=== PATIENT | female | born 1990 | race Caucasian/White ===

== ENCOUNTER 2020-10-01 23:27 | Emergency (ER) | payer MEDICAID ==
[~2020-10-01] VITALS: Ht 157.5 cm; Wt 63.5 kg
[2020-10-02 03:10] VITALS: BP 132/77
[2020-10-02] MEDS ORDERED: cefTRIAXone SOD 1,000 MG VL IM ONE (03:15)
[2020-10-02] MEDS ORDERED: ACETAMINOPHEN 325 MG TAB PO ONE (03:15)
== END 2020-10-02 04:05 | disposition home or self-care (01) ==
LOC: EDUNIT# 23:27 → EDBD 23:27 → ER 23:33
DX: J06.9 Acute upper respiratory infection, unspecified (principal); F15.10 Other stimulant abuse, uncomplicated; F12.10 Cannabis abuse, uncomplicated
CPT/HCPCS: 96372; 99283; J0696

== ENCOUNTER 2020-10-05 20:14 | Emergency (ER) | payer MEDICAID ==
[~2020-10-05] VITALS: Ht 154.9 cm; Wt 63.5 kg
[2020-10-05 23:12] VITALS: BP 126/76
== END 2020-10-06 00:45 | disposition home or self-care (01) ==
LOC: EDBD 20:14 → ER 20:14
DX: S00.83XA Contusion of other part of head, initial encounter (principal); R51.9 Headache, unspecified; Z88.5 Allergy status to narcotic agent; Y04.8XXA Assault by other bodily force, initial encounter; Y93.89 Activity, other specified; Y92.89 Other specified places as the place of occurrence of the external cause; Y99.8 Other external cause status
CPT/HCPCS: 70450; 72125

== ENCOUNTER 2021-07-23 05:52 | Emergency (ER) | payer MEDICAID ==
[~2021-07-23] VITALS: Ht 154.9 cm; Wt 63.5 kg
[2021-07-23 05:52] VITALS: BP 140/105
== END 2021-07-23 08:25 | disposition left against medical advice (07) ==
LOC: ER 05:52
DX: M54.50 Low back pain, unspecified (principal); M79.604 Pain in right leg; Z53.21 Procedure and treatment not carried out due to patient leaving prior to being seen by health care provider; W20.8XXA Other cause of strike by thrown, projected or falling object, initial encounter; Y93.89 Activity, other specified; Y92.89 Other specified places as the place of occurrence of the external cause; Y99.8 Other external cause status

== ENCOUNTER 2022-10-25 23:24 | Emergency (ER) | payer MEDICAID ==
[~2022-10-25] VITALS: Ht 154.9 cm; Wt 65.0 kg
[2022-10-25 23:52] VITALS: BP 149/87
== END 2022-10-26 01:25 | disposition left against medical advice (07) ==
LOC: ER 23:24
DX: R10.30 Lower abdominal pain, unspecified (principal); Z53.21 Procedure and treatment not carried out due to patient leaving prior to being seen by health care provider

== ENCOUNTER 2022-11-29 00:22 | Emergency (ER) | payer MEDICAID ==
[~2022-11-29] VITALS: Ht 154.9 cm; Wt 61.5 kg
[2022-11-29 07:13] VITALS: BP 122/86
[2022-11-29] MEDS ORDERED: HYDROcodone-ACET 10/325MG TAB PO ONE (07:45)
[2022-11-29] MEDS ORDERED: SODIUM CHLORIDE 0.9% 1,850 ML IV ONE (08:00)
[2022-11-29] MEDS ORDERED: VANCOMYCIN 1GM/250ML 250 ML IV ONE (08:00)
[2022-11-29] MEDS ORDERED: PIPERACILLIN-TAZOB 3.375GM 100 ML IV ONE (08:00)
[2022-11-29 08:27] LABS: Basophils # (auto) 0 10 ^3/uL (0-0.2); Basophils % (auto) 0.3 % (0.0-2.0); Eosinophils # (auto) 0.1 10 ^3/uL (0-0.8); Eosinophils % (auto) 0.9 % (0.0-7.0); Hematocrit 31.8 % (36.0-46.0); Hemoglobin 10.4 g/dL (12.2-16.2); Lymphocytes # (auto) 1.5 10 ^3/uL (0.4-5.4); Mean Corpuscular Hemoglobin 27.3 pg (28.0-32.0); Mean Corpuscular Hgb Conc. 32.6 g/dL (32.0-36.0); Mean Corpuscular Volume 83.8 fL (80.0-100.0); Monocytes # (auto) 0.7 10 ^3/uL (0-1.3); Monocytes % (auto) 6.3 % (0.0-12.0); Neutrophils # (auto) 8.6 10 ^3/uL (1.6-8.6); Neutrophils % (auto) 78.5 % (37.0-80.0); Nucleated Red Blood Cells % 0.1 %; Red Blood Cells 3.79 10^6/uL (4.0-5.20); Red Cell Distribution Width 17.7 % (11.8-14.3)
[2022-11-29 08:59] LABS: Albumin 3.4 g/dL (3.4-5.0); Calcium 8.3 mg/dL (8.5-10.1); Potassium 3.7 mmol/L (3.5-5.1)
[2022-11-29 09:02] LABS: BUN/Creatinine Ratio 16.4 (10.0-20.0); Bilirubin, Total 0.5 mg/dL (0.2-1.0)
== END 2022-11-29 12:20 | disposition left against medical advice (07) ==
LOC: ER 00:22
DX: N76.0 Acute vaginitis (principal); F12.10 Cannabis abuse, uncomplicated; F15.10 Other stimulant abuse, uncomplicated; I10 Essential (primary) hypertension; R10.2 Pelvic and perineal pain; Z88.6 Allergy status to analgesic agent
CPT/HCPCS: 36415; 74176; 80053; 83605; 84702; 85025; 87040; 96361; 96365; 96367; 99285; J2543; J3370; J7030

== ENCOUNTER 2023-08-19 19:28 | Emergency (ER) | payer MEDICAID ==
[~2023-08-19] VITALS: Ht 154.9 cm; Wt 73.0 kg
[2023-08-19 19:56] VITALS: BP 132/75; PULSE 92; RESP 24; O2SAT 100
[2023-08-19] MEDS: IBUPROFEN 800 MG TAB PO ONE (21:28)
== END 2023-08-19 22:58 | disposition left against medical advice (07) ==
LOC: ER 19:28
DX: S02.85XA Fracture of orbit, unspecified, initial encounter for closed fracture (principal); S09.8XXA Other specified injuries of head, initial encounter; F12.10 Cannabis abuse, uncomplicated; F15.10 Other stimulant abuse, uncomplicated; Z88.6 Allergy status to analgesic agent; Y04.2XXA Assault by strike against or bumped into by another person, initial encounter; Y93.89 Activity, other specified; Y92.89 Other specified places as the place of occurrence of the external cause; Y99.8 Other external cause status
CPT/HCPCS: 70450; 70486

== ENCOUNTER 2023-08-22 04:47 | Emergency (ER) | payer MEDICAID ==
[~2023-08-22] VITALS: Ht 154.9 cm; Wt 66.8 kg
[2023-08-22 06:02] VITALS: PULSE 95; RESP 99; O2SAT 99
[2023-08-22] MEDS: CLINDAMYCIN 900MG IV 50 ML IV ONE (07:22)
[2023-08-22] MEDS: TETANUS-DIPTH-ACEL PERTUSSIS 0.5ML SYR Tdap IM ONE (07:36)
[2023-08-22] MEDS: ACETAMINOPHEN 325 MG TAB PO ONE (07:37)
[2023-08-22 09:00] VITALS: RESP 16; O2SAT 97
[2023-08-22 09:16] VITALS: BP 133/66; PULSE 88; RESP 16; TEMP 98.4; O2SAT 97
== END 2023-08-22 09:45 | disposition short-term general hospital (02) ==
LOC: ER 04:47
DX: S02.85XA Fracture of orbit, unspecified, initial encounter for closed fracture (principal); S02.19XA Other fracture of base of skull, initial encounter for closed fracture; S02.40CA Maxillary fracture, right side, initial encounter for closed fracture; I10 Essential (primary) hypertension; F12.10 Cannabis abuse, uncomplicated; F15.10 Other stimulant abuse, uncomplicated; Z88.6 Allergy status to analgesic agent; Y04.2XXA Assault by strike against or bumped into by another person, initial encounter; Y93.89 Activity, other specified; Y92.89 Other specified places as the place of occurrence of the external cause; Y99.8 Other external cause status
CPT/HCPCS: 90471; 90715; 96365; 99285; J3490

== ENCOUNTER 2024-01-10 17:51 | Emergency (ER) | payer MEDICAID ==
[~2024-01-10] VITALS: Ht 154.9 cm; Wt 63.0 kg
[2024-01-10 20:30] VITALS: BP 134/77; PULSE 78; RESP 14; O2SAT 99
[2024-01-10] MEDS ORDERED: AUG875T PO (20:49)
[2024-01-10] MEDS: KETOROLAC TROMETH 30 MG/ML 1ML VIAL IM ONE (20:54)
[2024-01-10] MEDS: BENZOCAINE (DENTAL) 20 % SPRAY 60ML MT ONE (20:54)
[2024-01-10] MEDS: cefTRIAXone SOD 1,000 MG VL IM ONE (20:54)
== END 2024-01-10 21:24 | disposition home or self-care (01) ==
LOC: ER 18:02
DX: K04.7 Periapical abscess without sinus (principal); I10 Essential (primary) hypertension; F17.210 Nicotine dependence, cigarettes, uncomplicated; F10.90 Alcohol use, unspecified, uncomplicated; F12.90 Cannabis use, unspecified, uncomplicated; F15.90 Other stimulant use, unspecified, uncomplicated; Z88.5 Allergy status to narcotic agent
CPT/HCPCS: 96372; 99284; J0696; J1885

== ENCOUNTER 2024-08-03 09:27 | Emergency (ER) | payer MEDICAID ==
[~2024-08-03] VITALS: Ht 154.9 cm; Wt 69.6 kg
[~2024-08-03 09:27] MED LIST: AUG875T PO
[2024-08-03 09:47] VITALS: BP 140/92; PULSE 87; RESP 16; TEMP 98.9; O2SAT 99
--- NOTE | 2024-08-03 10:09 | ED.PDOC ---
Back pain HPI HPI Comments A 33 YEAR OLD FEMALE PRESENTS TO THE ED WITH COMPLAINT OF NECK PAIN X ONSET THIS MORNING. PATIENT STATES THAT SHE WOKE UP THIS MORNING AND HAS PAIN TO THE RIGHT SIDE OF HER NECK, RADIATES INTO HER RIGHT SHOULDER, AND DESCRIBES A ACHING, 10/10 PAIN. PATIENT IS ABLE TO MOVE HER NECK WITH FULL ROM. PATIENT ENDORSES THAT SHE MAY HAVE SLEPT ON HER PILLOW WRONG LAST NIGHT. PATIENT DENIES ANY NEUROLOGICAL SYMPTOMS. PATIENT DENIES FEVER, CHILLS, SHORTNESS OF BREATH, CHEST PAIN, ABDOMINAL PAIN, NAUSEA, VOMITING, HEADACHE, OR OTHER COMPLAINTS. NO OTHER SYMPTOMS OR MODIFYING FACTORS AT THIS TIME. PATIENT IS ALERT, ORIENTED X 4, AND HAS STEADY GAIT. Chief Complaint: Neck Pain Time Seen by MD: 09:56 Primary Care Provider: ALEX Reviewed Notes: Nurses Notes, Medications, Allergies Allergies: Coded Allergies: Codeine (Verified Allergy, Unknown, 10/05/20) Home Meds Active Scripts Methocarbamol (Methocarbamol) 750 Mg Tab, 750 MG PO BID, #20 TAB Prov:LB WOOD 08/03/24 Ibuprofen (Ibuprofen) 800 Mg Tab, 1 TAB PO TID, #30 TAB Prov:LB WOOD 08/03/24 Amoxicillin & Pot Clavulanate (AUGMENTIN TABLET) 875 Mg Tb, 875 MG PO BID for 7 Days, #14 TAB Prov:CARI CAMARILLO PAC 01/10/24 Information Source: Patient Mode of Arrival: Ambulatory Timing: Hours Duration: Since onset Location of Back pain: (B) Cervical, Other (RIGHT SHOULDER ) Severity: Moderate Prehospital treatment: None Quality: Aching Onset: Spontaneous History of: None Modifying Factors: Movement Associated signs and symptoms: None Past Medical History PAST MEDICAL HISTORY: HTN, Seizures Surgical History: Denies all surgeries 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 WITH [facility] History Family History Family History: Unknown Social History Smoker: Cigarettes, Greater Than 1 Pack/Day, Other Alcohol: Heavy Drugs: Marijuana, Methamphetamine Lives In: Home Constitutional: denies: chills, diaphoresis, fatigue, fever, malaise, sweats, weakness, others EENTM: denies: blurred vision, double vision, ear bleeding, ear discharge, ear drainage, ear pain, ear ringing, eye pain, eye redness, hearing loss, mouth pain, mouth swelling, nasal discharge, nose bleeding, nose congestion, nose pain, photophobia, tearing, throat pain, throat swelling, voice changes, others Respiratory: denies: cough, hemoptysis, orthopnea, SOB at rest, shortness of breath, SOB with excertion, stridor, wheezing, others Cardiovascular: denies: chest pain, dizzy spells, diaphoresis, Dyspnea on exertion, edema, irregular heart beat, left arm pain, lightheadedness, palpitations, PND, syncope, others Gastrointestinal: denies: abdomen distended, abdominal pain, blood streaked bowels, constipated, diarrhea, dysphagia, difficulty swallowing, hematemesis, melena, nausea, poor appetite, poor fluid intake, rectal bleeding, rectal pain, vomiting, others Genitourinary: denies: abnormal vagina bleeding, burning, dyspareunia, dysuria, flank pain, frequency, hematuria, incontinence, pain, , vagina discharge, urgency, others Neurological: denies: dizziness, fainting, headache, left sided numbness, left sided weakness, numbness, paresthesia, pre-existing deficit, right sided numb ness, right sided weakness, seizure, speech problems, tingling, tremors, weakness, others Musculoskeletal: reports: muscle pain, neck pain; denies: back pain, gout, joint pain, joint swelling, muscle stiffness, others Integumetry: denies: bruises, change in color, change in hair/nails, dryness, laceration, lesions, lumps, rash, wounds, others Allergic/Immunocompromised: denies: Difficulty Healing, Frequent Infections, Hives, Itching, others Hematologic/Lymphatic: denies: anemia, blood clots, easy bleeding, easy bruising, swollen glands, others Endocrine: denies: excessive hunger, excessive sweating, excessive thirst, excessive urination, flushing, intolerance to cold, intolerance to heat, unexplained weight gain, unexplained weight loss, others Psychiatric: denies: anxiety, bipolar disorder, depression, hopeless, panic disorder, schizophrenia, sleepless, suicidal, others All Other Systems: Reviewed and Negative Physical Exam General Appearance: No Apparent Distress, Normal HEENT: Normal ENT Inspection, PERRL/EOMI, Pharynx Normal, TMs Normal Neck: Full Range of Motion, Normal Inspection, Supple, Tender Lateral (MUSCLE SPASM ON RIGHT SIDE NECK, NO BONY TENDERNESS, SWELLING AND DEFORMITY. ) Respiratory: Chest Non-Tender, Lungs Clear, No Accessory Muscle Use, No Respiratory Distress, Normal Breath Sounds Cardiovascular: No Edema, No JVD, No Murmur, No Gallop, Normal Peripheral Pulses, Regular Rate/Rhythm Breast Exam: Deferred Gastrointestinal: No Organomegaly, Non Tender, No Pulsatile Mass, Normal Bowel Sounds, Soft Genitalia: Deferred Pelvic: Deferred Rectal: Deferred Extremities: No calf tenderness, Normal capillary refill, Normal inspection, Normal range of motion, Non-tender, No pedal edema, Other (NO TENDERNESS ON RIGHT SHOULDER, NORMAL RIGHT SHOULDER, NORMAL ROM. ) Musculoskeletal : Apperance: Normal Neurologic: Alert, photo journalist II-XII nml as Tested, No Motor Deficits, Normal Affect, Normal Mood, No Sensory Deficits Cerebellar Function: Normal Reflexes: Normal Skin: Dry, Normal Color, Warm Peripheral Pulses: 2+ carotid (R), 2+ carotid (L) Lymphatic: No Adenopathy Was a procedure done? Was a procedure done?: No Back Pain Differential Dx Differential Diagnosis: Fracture, Musculoskeletal Pain, Strain X-Ray, Labs, Meds, VS Vital Signs Date Time Temp Pulse Resp B/P (MAP) Pulse Ox O2 Delivery O2 Flow Rate FiO2 08/03/24 09:47 98.9 87 16 140/92 (108) 99 98.9 08/03/24 09:47 87 16 99 Room Air 08/03/24 09:35 98.9 87 16 140/92 (108) 99 PATIENT: PORSHA JAMISONT: [id number]: [id number] : 1990 LOC: ER ROOM / BED: / AGE / SEX: 33 / F ADM STATUS: REG ER SERVICE [id number] ORDERING PHYSICIAN: LB WOOD PROCEDURE(s): CERV2 - CERVICAL SPINE 3V REASON: NECK PAIN TO RIGHT SHOULDER ORDER NUMBER(s): [id number], ACCESSION NUMBER(s): [id number] INDICATION: NECK PAIN TO RIGHT SHOULDER TECHNIQUE: 3 views of the cervical spine were obtained. COMPARISON: None FINDINGS: The cervical spine is visualized from C1-C7. There is loss of the normal cervical lordosis which can be positional. No fractures or subluxations are identified. Multilevel degenerative changes of the spine. Alignment appears unremarkable. Prevertebral soft tissues are within normal limits. IMPRESSION: 1. No evidence for fracture or subluxation. ATED BY: DUSTY OCONNOR MD DICTATED DATE/TIME: 08/03/24 1038 SIGNED BY: DUSTY OCONNOR MD SIGNED DATE/TIME: 08/03/24 1038 CC: X-Ray, Labs, Meds, VS Comment EXTERNAL MEDICAL RECORDS REVIEWED: [NONE] INDEPENDENT HISTORIANS: [NONE] SOCIAL DETERMINANTS OF HEALTH: [NONE] LABS ORDERED: NONE REVIEWED AND INTERPRETED RESULTS: NONE IMAGING ORDERED: NONE TREATMENTS ORDERED: TYLENOL 1GM PO PROCEDURES PERFORMED: NONE CRITICAL CARE TIME: NONE I HAVE DISCUSSED THE PATIENT WITH THE ATTENDING PHYSICIAN DR. MORRIS AND HE AGREES WITH THE PATIENT'S PLAN OF CARE AND DISPOSITION. BASED ON HISTORY OF PRESENT ILLNESS, AND PHYSICAL EXAM, PATIENT WILL BE DISCHARGED HOME. DISCUSSED PLAN FOR DISCHARGE HOME WITH RX []. MEDICATION WARNINGS GIVEN. SHARED DECISION MAKING: DISCUSSED WITH PATIENT THAT THEIR WORKUP WAS NORMAL. PATIENT INSTRUCTED TO FOLLOW UP WITH PRIMARY CARE PROVIDER IN 1-2 DAYS FOR RE- EVALUATION OF SYMPTOMS. PATIENT VERBALIZES UNDERSTANDING TO RETURN TO ED FOR NEW OR WORSENING SYMPTOMS OR IF FOLLOW UP WITH PCP CANNOT BE OBTAINED. PATIENT FEELS COMFORTABLE GOING HOME AT THIS TIME. ALL QUESTIONS ADDRESSED AT TIME OF DISCHARGE. Time of 1ST Reevaluation: 10:45 Reevaluation 1ST: Improved Patient Education/Counseling: Diagnosis, Treatment, Need For Follow Up Family Education/Counseling: Diagnosis, Treatment, Need For Follow Up Medical Screening: No EMC Exist At This Time Departure 1 Departure Time of Disposition: 10:45 Impression: Primary Impression: DDD (degenerative disc disease), cervical Additional Impression: Cervical radiculopathy Disposition: 01 HOME / SELF CARE / HOMELESS Condition: Stable Additional Instructions: FOLLOW-UP WITH PCP IN 1 TO 2 DAYS. TAKE MEDICATIONS PRESCRIBED. RETURN TO ED FOR ANY NEW OR WORSENING SYMPTOMS. e-Prescriptions Methocarbamol (Methocarbamol) 750 Mg Tab 750 MG PO BID, #20 TAB Prov: LB WOOD 08/03/24 Ibuprofen (Ibuprofen) 800 Mg Tab 1 TAB PO TID, #30 TAB Prov: LB WOOD 08/03/24 Discharged With: Self Critical Care Note Critical Care Time?: No Stability Stability form required: No Heart Score Heart Score: Heart Score Response (Comments) Value History N/A 0 EKG N/A 0 Age N/A 0 Risk Factors N/A 0 Troponin N/A 0 Total 0 I personally scribed for LB WOOD ([email or web address]) on 08/03/24 at 10:09. Electronically submitted by Trung Bah ([email or web address]). I personally scribed for LB WOOD ([email or web address]) on 08/03/24 at 10:42. Electronically submitted by Trung Bah ([email or web address]). LB WOOD Aug 03, 2024 10:09
[2024-08-03] MEDS: KETOROLAC TROMETH 60MG/2ML VIAL IM ONE (10:25)
--- NOTE | 2024-08-03 10:40 | DVH ---
INDICATION: NECK PAIN TO RIGHT SHOULDER TECHNIQUE: 3 views of the cervical spine were obtained. COMPARISON: None FINDINGS: The cervical spine is visualized from C1-C7. There is loss of the normal cervical lordosis which can be positional. No fractures or subluxations are identified. Multilevel degenerative changes of the spine. Alignment appears unremarkable. Prevertebral soft tissues are within normal limits. IMPRESSION: 1. No evidence for fracture or subluxation.
[2024-08-03] MEDS ORDERED: METH-1182 PO (10:45)
[2024-08-03] MEDS: ACETAMINOPHEN 325 MG TAB PO ONE (10:45)
[2024-08-03] MEDS ORDERED: IBUP-1456 PO (10:45)
== END 2024-08-03 10:50 | disposition home or self-care (01) ==
LOC: ER 09:27
DX: M50.10 Cervical disc disorder with radiculopathy, unspecified cervical region (principal); I10 Essential (primary) hypertension; F17.210 Nicotine dependence, cigarettes, uncomplicated; Z88.5 Allergy status to narcotic agent
CPT/HCPCS: 72040; 99283; J1885

== ENCOUNTER 2024-09-24 20:03 | Emergency (ER) | payer MEDICAID ==
[~2024-09-24] VITALS: Ht 154.9 cm; Wt 72.2 kg
[~2024-09-24 20:03] MED LIST changes: +IBUP-1456 PO; +METH-1182 PO
[2024-09-24 20:20] VITALS: BP 133/92; PULSE 103; RESP 16; TEMP 98.1; O2SAT 97
== END 2024-09-24 22:27 | disposition left against medical advice (07) ==
LOC: ER 20:03
DX: T14.8XXA Other injury of unspecified body region, initial encounter (principal); Z53.21 Procedure and treatment not carried out due to patient leaving prior to being seen by health care provider; X58.XXXA Exposure to other specified factors, initial encounter; Y93.89 Activity, other specified; Y92.89 Other specified places as the place of occurrence of the external cause; Y99.8 Other external cause status